=== PATIENT | male | born 2000 | race Caucasian/White ===

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

== ENCOUNTER 2023-12-11 07:28 | Emergency (ER) | payer BC, OTHER ==
[2023-12-11 07:37] VITALS: BP 131/80; PULSE 56; RESP 20; TEMP 97.6; BMI 25.1
[2023-12-11] MEDS ORDERED: IBUPROFEN 600 MG TABLET (FP) PO ONE (08:05)
[2023-12-11] MEDS: IBUPROFEN 600 MG TABLET (FP) PO ONE (08:06)
== END 2023-12-11 09:37 | disposition home or self-care (01) ==
LOC: JER 07:28
DX: S90.31XA Contusion of right foot, initial encounter (principal); W20.8XXA Other cause of strike by thrown, projected or falling object, initial encounter
CPT/HCPCS: 73630-TC-RT-FY; 99283-25